=== PATIENT | male | born 1950 | race Caucasian/White ===

== ENCOUNTER → 2016-12-03 | Outpatient (CLI) | payer BC ==
[~2016-12-03] MED LIST: ASPCH81X PO; ASPI-321 OR; ATOR-22 PO; ATOR-54 PO; COEN100C7 PO; FEXO1TAB45 PO; FEXO1TAB49 PO; FIBER TAB PO; GABA-113 PO; GLUC10007; GLUCTAB7 PO; HYDR-4332 PO; MULT-506 PO; OMEG10007 PO; OMEGA PO; OXYC-59 PO; VITAMINC
== END | disposition home or self-care (01) ==
LOC: C.RDSM 12:44
PROVIDERS: ATTEND Family Medicine Sports Medicine
DX: M25.512 Pain in left shoulder (principal)

== ENCOUNTER → 2017-01-14 | Outpatient (CLI) | payer BC ==
--- NOTE | 2017-01-14 14:17 | DIAGNOSTIC IMAGING REPORT ---
MRI LUMBAR SPINE W/O CONTRAST CLINICAL HISTORY: Back pain with left leg radiculopathy. TECHNIQUE: Sagittal and axial T1, T2 and STIR images were obtained. The patient was imaged under 0.7 Theresa open MRI scanner COMPARISON STUDY: No previous studies for comparison. OBSERVATIONS: The vertebral bodies and posterior elements appear intact. There is no abnormal bony signal present to suggest a marrow replacement process. L1-2: There is a mild circumferential disc bulge. There is minor narrowing of the AP diameter spinal canal. There is no significant foraminal narrowing L2-3: There is a mild circumferential disc bulge. There is no significant spinal foraminal stenosis L3-4: There is a mild circumferential disc bulge. There is minimal narrowing of the AP diameter spinal canal. There is no significant foraminal narrowing L4-5: There is an annular fissure. There is a grade 1 spondylolisthesis of L4 and L5. There is a mild circumferential disc bulge. There is mild spinal stenosis. Within the left lateral recess, there is a 13 mm T1 hypointense and T2 hyperintense mass. This deforms the left lateral aspect of the thecal sac, abuts the left facet joint, and likely impinges on the L5 nerve root. This lesion likely represents a synovial cyst although a free disc fragment or nerve sheath tumor could appear similar. L5-S1: No disc protrusions or extrusions. No evidence of spinal canal or neural foraminal compromise. The conus medullaris and cauda equina appear normal. 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 IMPRESSION: 1. Multilevel spondylitic changes 2. 13 mm mass at the mid L4 level to the left of midline. This is T1 hypointense and T2 hyperintense. This deforms the lateral aspect of thecal sac and abuts the left facet joint and likely impinges on the left L5 nerve root. As stated above, this lesion likely represents a synovial cyst, although a free disc fragment or nerve sheath tumor cannot be excluded with certainty Electronically signed by: Chace Duval M.D. 01/14/2017 2:16 PM Dictated Date/Time: 01/14/2017 2:06 PM
== END | disposition home or self-care (01) ==
LOC: C.OPENMRI 13:02
PROVIDERS: ATTEND Family Medicine Sports Medicine
DX: M54.10 Radiculopathy, site unspecified (principal); M54.5 Low back pain

== ENCOUNTER → 2017-03-18 | Day surgery (SDC) | payer BC ==
[2017-02-19 11:07] VITALS: Ht 177.2 cm; Wt 94.1 kg
[~2017-03-18] VITALS: Ht 177.2 cm; Wt 94.1 kg
[~2017-03-18] MED LIST changes: -ASPI-321 OR; -ATOR-22 PO; -FEXO1TAB45 PO; -GLUC10007; +IOPAMIDOL INJ 61% 15 ML VIAL ONE; +LIDOCAINE HCL 1% MPF 5 ML VIAL ONE; -OMEGA PO; +SODIUM CHLORIDE 0.9% INJ 10 ML VIAL ONE; -VITAMINC
--- NOTE | 2017-03-18 12:58 | History & Physical Bridge - [place] ---
H&P Re-Evaluation Bridge Note: I have examined the patient, reviewed the History & Physical and in the interval since the performance of the History & Physical I have noted the following changes of clinical significance: No changes noted
--- NOTE | 2017-03-18 13:25 | Discharge Instructions ---
Discharge Instructions Date of Service Mar 18, 2017. Visit Reason for Visit: Lumbar Radiculopathy Discharge Discharge Diagnosis / Problem: Left leg pain Discharge Goals Goal(s): Decrease discomfort, Improve function Medications Stopped Medications Name(s): asa and gabapentin last dose on thursday. Activity Recommendations Activity Limitations: resume your previous activity Anesthesia . Post Anesthesia Instructions: If you have had General Anesthesia or IV Sedation: * Do not drive today. * Resume driving when surgeon permits. * Do not make important decisions or sign legal documents today. * Call surgeon for: 1. Temperature elevations greater than 101 degrees F. 2. Uncontrollable pain. 3. Excessive bleeding. 4. Persistent nausea and vomiting. 5. Medication intolerance (nausea, vomiting or rash). * For nausea and vomiting use only clear liquids such as: tea, soda, bouillon until nausea subsides, then gradually increase diet as tolerated. * If you have any concerns or questions, call your surgeon's office. If physician is unavailable and it is an emergency, call 911 or go to the nearest emergency room. . Diet Recommendations Recommended Home Diet: resume previous diet Procedures Procedures Performed: LUMBAR EPIDURAL STEROID INJECTION Pending Studies Studies pending at discharge: no Medical Emergencies . Who to Call and When: Medical Emergencies: If at any time you feel your situation is an emergency, please call 911 immediately. . Non-Emergent Contact Non-Emergency issues call your: Specialist . . "Provider Documentation" section prepared by James Joyner. .
[2017-03-18 13:29] VITALS: TEMP 36.6
[2017-03-18 13:35] VITALS: BP 132/89; PULSE 56; O2SAT 96
--- NOTE | 2017-03-26 08:15 | [facility] Operative Report ---
Operative Report Date of Service Mar 18, 2017. Operative Report DATE OF SURGERY: 03/18/17. DATE OF OPERATION: 03/18/2017 PREOPERATIVE DIAGNOSIS: Grade I L4-5sondylolisthesis with left lower extremity radiculopathy. POSTOPERATIVE DIAGNOSIS: Same. PROCEDURE: Right paramedian L5-S1 intralaminar epidural steroid injection under fluoroscopic guidance. SURGEON: Dr. James Joyner. INDICATIONS: The patient is a 66-year-old white male who presents today for an epidural to provide him with relief. PHYSICAL EXAMINATION: GENERAL: Pleasant male seated comfortably in no apparent distress. MUSCULOSKELETAL EXAMINATION: Lumbar paraspinal muscles were palpated. They were nontender. He had no sensitivity of the sciatic notch. He had normal lower extremity strength. Negative seated straight leg raises and had no difficulty with hip adduction. CONSENT: Verbal and written consent was obtained from the patient. Risks and benefits were reviewed. Risks include but are not limited to epidural abscess, epidural hematoma, allergic reaction, dural puncture. The patient wishes to proceed. PROCEDURE: The patient was taken back to the special procedures room of the [facility] where he was maintained in a prone position. Backside was cleansed with Betadine x3 and a dry sterile dressing was applied. Fluoroscope was used to identify the L5-S1 intralaminar space and overlying skin on the right side was anesthetized with 4 mL of lidocaine 1% with a 25 gauge 1.5-inch needle. A 22-gauge 3-1/2 inch Tuohy needle was then directed down towards the intralaminar space. It was advanced under lateral fluoroscopic guidance. Loss of resistance was noted and Isovue-300 contrast 1 mL was injected in which demonstrated epidural uptake pattern which was confirmed with both AP and lateral views. He then underwent injection after negative aspiration of 40 mg of Depo-Medrol and 4 mL of preservative free sodium chloride. Injection was well tolerated. DISPOSITION: 1. The patient is taken out into the discharge recovery area where he will be discharged home once discharge criteria have been met. 2. Follow up in the [facility] Medicine office in 2-4 weeks. I attest to the content of the Intraoperative Record and any orders documented therein. Any exceptions are noted below. I attest to the content of the Intraoperative Record and any orders documented therein. Any exceptions are noted below.
== END | disposition home or self-care (01) ==
LOC: X.SURG 11:46
PROVIDERS: ATTEND Physical Medicine & Rehabilitation
DX: M43.16 Spondylolisthesis, lumbar region (principal); M71.38 Other bursal cyst, other site

== ENCOUNTER → 2017-05-21 | Day surgery (SDC) | payer BC ==
[2017-05-05 10:21] VITALS: Ht 177.2 cm; Wt 94.1 kg
[~2017-05-21] VITALS: Ht 177.2 cm; Wt 94.1 kg
[~2017-05-21] MED LIST changes: +BUPIVACAINE 0.25% 2.5MG/ML PF 10 ML VIAL ONE; -OXYC-59 PO
[2017-05-21 14:42] VITALS: TEMP 36.7
--- NOTE | 2017-05-21 14:49 | Discharge Instructions ---
Discharge Instructions Date of Service May 21, 2017. Visit Reason for Visit: Lumbar Radiculopathy Discharge Discharge Diagnosis / Problem: left leg pain Discharge Goals Goal(s): Decrease discomfort, Improve function Activity Recommendations Activity Limitations: resume your previous activity Anesthesia . Post Anesthesia Instructions: If you have had General Anesthesia or IV Sedation: * Do not drive today. * Resume driving when surgeon permits. * Do not make important decisions or sign legal documents today. * Call surgeon for: 1. Temperature elevations greater than 101 degrees F. 2. Uncontrollable pain. 3. Excessive bleeding. 4. Persistent nausea and vomiting. 5. Medication intolerance (nausea, vomiting or rash). * For nausea and vomiting use only clear liquids such as: tea, soda, bouillon until nausea subsides, then gradually increase diet as tolerated. * If you have any concerns or questions, call your surgeon's office. If physician is unavailable and it is an emergency, call 911 or go to the nearest emergency room. . Diet Recommendations Recommended Home Diet: resume previous diet Procedures Procedures Performed: Lumbar Epidural Steroid Injection-TRANSFORAMINAL APPROACH Pending Studies Studies pending at discharge: no Medical Emergencies . Who to Call and When: Medical Emergencies: If at any time you feel your situation is an emergency, please call 911 immediately. . Non-Emergent Contact Non-Emergency issues call your: Specialist . . "Provider Documentation" section prepared by James Joyner. .
[2017-05-21 14:57] VITALS: BP 141/85; PULSE 60; O2SAT 96
--- NOTE | 2017-05-21 15:44 | OPERATIVE REPORT ---
DATE OF OPERATION: 05/21/2017 PREOPERATIVE DIAGNOSIS: Left L4 radiculopathy secondary to lumbar spondylolisthesis. POSTOPERATIVE DIAGNOSIS: Same. PROCEDURE: Left transforaminal L4-L5 epidural steroid injection under fluoroscopic guidance. SURGEON: Dr. James Joyner. INDICATIONS: The patient is a 67-year-old white male who is describing more of a radicular sensation now that he underwent denervation following the L4 dermatomal pattern. An MRI was done to evaluate L4 radicular changes. He was noted to have some narrowing of the foramen in this area and he presents today for a transforaminal approach given his prior surgery that the interlaminar approach would be precluded. PHYSICAL EXAMINATION: Pleasant male seated comfortably. Paraspinals were palpated and noted to be nontender. He had some sensitivity to palpation of his left sciatic notch. This is worse with extension. No problems with flexion. He had no focal weakness. Negative seated straight leg raises, intact sensation distally L5, S1 dermatomes. CONSENT: Verbal and written consent was obtained from the patient. Risks and benefits were reviewed. Risks include but are not limited to epidural abscess, epidural hematoma, allergic reaction and dural puncture. The patient wishes to proceed. PROCEDURE: The patient was taken back to the special procedures room of the [facility] where he was obtained in a prone position. Backside was cleansed with Betadine x3 and a dry sterile dressing was applied. Fluoroscope was used to identify the L4-L5 transforaminal area and then moved into an oblique view and inferior to the L4 pedicle was targeted. Overlying skin was anesthetized with 4 mL of lidocaine 1% with a 25 gauge 1.5-inch needle. A 22 gauge 5 inch spinal needle was then directed with target inferior to the pedicle. It was placed in that direction and then moved into an AP view to advance further. He developed some leg discomfort. It was withdrawn 1 millimeter and then injected with Isovue 300 contrast which showed nerve outline. He then underwent injection after negative aspiration of 40 mg of Depo-Medrol and 1.5 mL of lidocaine 1%. Injection was well tolerated and reproduced a familiar transient radicular sensation down the left leg. DISPOSITION: 1. The patient is taken out into the discharge recovery area where he will be discharged home once discharge criteria have been met. 2. Follow up in the [facility] Medicine office in 2-4 weeks. I attest to the content of the Intraoperative Record and any orders documented therein. Any exception s are noted below.
== END | disposition home or self-care (01) ==
LOC: X.SURG 13:40
PROVIDERS: ATTEND Physical Medicine & Rehabilitation
DX: M43.16 Spondylolisthesis, lumbar region (principal); M54.16 Radiculopathy, lumbar region